=== PATIENT | male | born 1995 | race Caucasian/White ===

== ENCOUNTER 2016-12-02 08:37 | Day surgery (SDC) | payer OTHER ==
[~2016-12-02] VITALS: Ht 165.1 cm; Wt 61.2 kg
[2016-12-02 09:02] VITALS: BP 132/91
[2016-12-02 17:22] VITALS: BP 125/89
== END 2016-12-02 17:27 | disposition home or self-care (01) ==
LOC: DS 08:37
PROVIDERS: Neuromusculoskeletal Medicine, Sports Medicine
PROC: 0MSP4ZZ Reposition Left Knee Bursa and Ligament, Percutaneous Endoscopic Approach (ICD-10-PCS; principal; 2016-12-02 10:00)
DX: S83.512A Sprain of anterior cruciate ligament of left knee, initial encounter (principal); W51.XXXA Accidental striking against or bumped into by another person, initial encounter; Y93.66 Activity, soccer; Y92.838 Other recreation area as the place of occurrence of the external cause
CPT/HCPCS: C1713; C1762; J0690; J1170; J2175; J2250; J2405; J2704; J3010; J3490; J7120